=== PATIENT | male | born 1965 | race Caucasian/White ===

== ENCOUNTER 2018-12-07 11:28 | Day surgery (SDC) | payer SELFPAY ==
[2018-12-07] MEDS ORDERED: ceFAZolin(*) 1 GM VIAL 1 GM in NS(*) 0.9% 100 ML MINI-BAG 100 ML IV ONE (11:35)
[2018-12-07] MEDS ORDERED: DIPHTH/TETANUS/ACEL. PERTUSSIS IM ONLY ONE (11:35)
--- NOTE | 2018-12-07 11:37 | ER Report ---
History and Physical Time Seen By MD: 11:37 HPI/ROS CHIEF COMPLAINT: Amputation of left first finger HISTORY OF PRESENT ILLNESS: 53-year-old male patient presents to emergency room with complaint of amputation of left first finger. Patient states that he was using a skill saw and cut the end of his thumb off. Patient states he is not taking any medication for this. He did apply pressure, grabbed the distal end of the digit, placed it in ice and went to urgent care. On evaluation urgent care they saw the amputation and referred him directly to the emergency room. Patient states he started to throb, is having pain. He denies any other injury. He states he is unsure of his last tetanus shot. REVIEW OF SYSTEMS: Respiratory: No cough, no dyspnea. Cardiovascular: No chest pain, no palpitations. Gastrointestinal: No vomiting, no abdominal pain. Musculoskeletal: As noted above Allergies: Coded Allergies: No Known Drug Allergies (Unverified , 12/07/18) Home Meds Reported Medications Hydrocodone Bit/Acetaminophen (NORCO 5-325 TABLET) 1 Each Tablet, 1-2 EACH PO Q4-6H PRN for PAIN, #20 TAB 12/07/18 Cephalexin 500 Mg Tab (KEFLEX 500 MG TAB) 500 Mg Tablet, 500 MG PO TID for 10 Days, #30 TAB 12/07/18 Past Medical/Surgical History Patient has no pertinent medical or surgical history. Reviewed Nurses Notes: Yes Constitutional Vital Sign - Last 24 Hours 12/07/18 12/07/18 12/07/18 12/07/18 11:30 11:45 11:45 12:00 Temp 98.4 Pulse 52 48 Resp 14 B/P (MAP) 156/73 (100) 156/73 116/90 (99) Pulse Ox 96 97 96 O2 Delivery Room Air 12/07/18 12/07/18 12/07/18 12:15 12:30 12:45 Pulse 46 48 54 B/P (MAP) 120/82 (95) Pulse Ox 94 96 94 Physical Exam General Appearance: The patient is alert, has no immediate need for airway protection and no current signs of toxicity. Respiratory: Chest is non tender, lungs are clear to auscultation. Cardiac: regular rate and rhythm Gastrointestinal: Abdomen is soft and non tender, no masses, bowel sounds normal. Musculoskeletal: Neck: Neck is supple and non tender. Extremities have full range of motion and are non tender. Patient has amputation of distal and of the left first finger. Skin: No rashes or lesions. DIFFERENTIAL DIAGNOSIS: After history and physical exam differential diagnosis was considered for amputation, open fracture Medical Decision Making Data Points Result Diagram: 12/07/18 1140 12/07/18 1140 Laboratory Hematology Test 12/07/18 11:40 Red Blood Count 4.55 M/uL (4.00-5.60) Mean Corpuscular Volume 94.3 fL (80.0-96.0) Mean Corpuscular Hemoglobin 31.8 pg (26.0-33.0) Mean Corpuscular Hemoglobin Concent 33.7 g/dL (32.0-36.0) Red Cell Distribution Width 13.6 % (11.5-14.5) Mean Platelet Volume 9.0 fL (7.2-11.1) Neutrophils (%) (Auto) 51.6 % (39.4-72.5) Lymphocytes (%) (Auto) 33.0 % (17.6-49.6) Monocytes (%) (Auto) 10.8 % (4.1-12.4) Eosinophils (%) (Auto) 3.7 % (0.4-6.7) Basophils (%) (Auto) 0.9 % (0.3-1.4) Nucleated RBC Relative Count (auto) 0.0 /100WBC Neutrophils # (Auto) 2.5 K/uL (2.0-7.4) Lymphocytes # (Auto) 1.6 K/uL (1.3-3.6) Monocytes # (Auto) 0.5 K/uL (0.3-1.0) Eosinophils # (Auto) 0.2 K/uL (0.0-0.5) Basophils # (Auto) 0.0 K/uL (0.0-0.1) Nucleated RBC Absolute Count (auto) 0.00 K/uL Peripheral Blood Smear No Y/N Sodium Level 142 mmol/L (137-145) Potassium Level 3.7 mmol/L (3.5-5.0) Chloride Level 108 mmol/L (98-107) Carbon Dioxide Level 26 mmol/L (22-30) Blood Urea Nitrogen 9 mg/dl (9-21) Creatinine 1.00 mg/dl (0.66-1.25) Glomerular Filtration Rate Calc > 60.0 Random Glucose 82 mg/dl (75-110) Calcium Level 8.6 mg/dl (8.4-10.2) Total Bilirubin 0.6 mg/dl (0.2-1.3) Aspartate Amino Transf (AST/SGOT) 26 U/L (0-35) Alanine Aminotransferase (ALT/SGPT) 31 U/L (0-56) Alkaline Phosphatase 47 U/L (0-126) Total Protein 7.1 g/dl (6.3-8.2) Albumin 3.8 g/dl (3.5-5.0) Chemistry Test 12/07/18 11:40 White Blood Count 4.9 k/uL (4.5-11.0) Red Blood Count 4.55 M/uL (4.00-5.60) Hemoglobin 14.5 g/dL (14.0-18.0) Hematocrit 42.9 % (42.0-52.0) Mean Corpuscular Volume 94.3 fL (80.0-96.0) Mean Corpuscular Hemoglobin 31.8 pg (26.0-33.0) Mean Corpuscular Hemoglobin Concent 33.7 g/dL (32.0-36.0) Red Cell Distribution Width 13.6 % (11.5-14.5) Platelet Count 169 K/uL (150-450) Mean Platelet Volume 9.0 fL (7.2-11.1) Neutrophils (%) (Auto) 51.6 % (39.4-72.5) Lymphocytes (%) (Auto) 33.0 % (17.6-49.6) Monocytes (%) (Auto) 10.8 % (4.1-12.4) Eosinophils (%) (Auto) 3.7 % (0.4-6.7) Basophils (%) (Auto) 0.9 % (0.3-1.4) Nucleated RBC Relative Count (auto) 0.0 /100WBC Neutrophils # (Auto) 2.5 K/uL (2.0-7.4) Lymphocytes # (Auto) 1.6 K/uL (1.3-3.6) Monocytes # (Auto) 0.5 K/uL (0.3-1.0) Eosinophils # (Auto) 0.2 K/uL (0.0-0.5) Basophils # (Auto) 0.0 K/uL (0.0-0.1) Nucleated RBC Absolute Count (auto) 0.00 K/uL Peripheral Blood Smear No Y/N Glomerular Filtration Rate Calc > 60.0 Calcium Level 8.6 mg/dl (8.4-10.2) Total Bilirubin 0.6 mg/dl (0.2-1.3) Aspartate Amino Transf (AST/SGOT) 26 U/L (0-35) Alanine Aminotransferase (ALT/SGPT) 31 U/L (0-56) Alkaline Phosphatase 47 U/L (0-126) Total Protein 7.1 g/dl (6.3-8.2) Albumin 3.8 g/dl (3.5-5.0) EKG/Imaging Imaging Exam type: 3 views of the left thumb History: cut with saw Comparison: None. Findings: There is a comminuted fracture of the tuft of the left thumb a portion of which appears to be avulsed. Significant soft tissue irregularity is noted. The 1st metatarsal proximal phalanx of the thumb are intact. IMPRESSION: 1. Comminuted and displaced fracture of tuft of the left thumb with significant soft tissue irregularity Report Dictated By: Pj Stringer MD at 12/07/2018 12:59 PM Report E-Signed By: jP Stringer MD at 12/07/2018 1:00 PM ED Course/Re-evaluation ED Course Patient was admitted and examined, history and physical were obtained. Differential diagnoses were considered. On examination lungs are clear, heart is regular, abdomen is soft and nontender. Patient has obvious amputation of the distal aspect of the left thumb. X-rays done which showed open fracture of the distal tuft. Patient received a digital block, 1 g of Ancef. I discussed the case with Dr. Carroll, orthopedic surgeon,. He does look at the x-rays and came and evaluated the patient. He got to take patient to the OR to shorten the thumb and perform a flap surgery. He discussed this with the patient verbalized understanding and agreement. Patient is admitted from the emergency room to the OR. Decision to Disposition Date: Dec 07, 2018 Decision to Disposition Time: 13:17 Depart Departure Latest Vital Signs Vital Signs Date Time Temp Pulse Resp B/P (MAP) Pulse Ox O2 Delivery O2 Flow Rate FiO2 12/07/18 12:45 54 94 12/07/18 12:30 120/82 (95) 12/07/18 11:45 98.4 14 Room Air Impression: Primary Impression: Amputation of thumb, left Condition: Condition Unchanged Disposition: ADMIT FROM ER TO OR Problem Qualifiers Primary Impression: Amputation of thumb, left Encounter type: initial encounter Qualified Codes: S68.012A - Complete traumatic metacarpophalangeal amputation of left thumb, initial encounter GRICELDA CAPONE Dec 07, 2018 11:37
[2018-12-07 11:55] LABS: PLATELET COUNT, AUTOMATED 169 K/uL (150-450)
[2018-12-07] MEDS ORDERED: ONDANSETRON 4 MG/2 ML VIAL ONE (12:56)
[2018-12-07] MEDS ORDERED: DEXAMETHASONE SOD 4 MG/ML VIAL ONE (12:56)
[2018-12-07] MEDS ORDERED: LIDOCAINE MPF 1% 5 ML VIAL ONE (12:56)
[2018-12-07] MEDS ORDERED: PROPOFOL EMUL(*) 10MG/ML 20 ML 20 ML ONE (12:56)
[2018-12-07] MEDS ORDERED: fentaNYL CITR 100 MCG/2 ML AMP ONE (12:56)
[2018-12-07] MEDS ORDERED: KETAMINE HCL 200 MG/20 ML MDV ONE (12:58)
--- NOTE | 2018-12-07 13:04 | RADIOLOGY IMAGING REPORT ---
FACILITY: [facility] - [place], [place] PATIENT NAME: Kris Montenegro : 1965 MR: [id number] V: [id number] EXAM DATE: ORDERING PHYSICIAN: GRICELDA CAPONE TECHNOLOGIST: Location: [facility] [place] Patient: Kris Montenegro : 1965 Visit/Account:[id number] Date of Sevice: 12/07/2018 Exam type: 3 views of the left thumb History: cut with saw Comparison: None. Findings: There is a comminuted fracture of the tuft of the left thumb a portion of which appears to be avulsed . Significant soft tissue irregularity is noted. The 1st metatarsal proximal phalanx of the thumb a re intact. IMPRESSION: 1. Comminuted and displaced fracture of tuft of the left thumb with significant soft tissue irregula rity Report Dictated By: Pj Stringer MD at 12/07/2018 12:59 PM Report E-Signed By: Pj Stringer MD at 12/07/2018 1:00 PM WSN:JEN
[2018-12-07] MEDS ORDERED: LR(*) 1000 ML BAG 1,000 ML ONE (13:05)
[2018-12-07] MEDS ORDERED: KETOROLAC 30 MG/ML VIAL ONE (14:30)
[2018-12-07] MEDS ORDERED: CEPH500T7 PO (14:37)
[2018-12-07] MEDS ORDERED: HYDR-653 PO (14:38)
[2018-12-07 14:44] VITALS: BP 126/86
[2018-12-07 14:45] VITALS: BP 125/95
--- NOTE | 2018-12-07 14:50 | OPERATIVE REPORT 1 ---
EVENT DATE: December 07, 2018 SURGEON: Kris Carroll MD ANESTHESIOLOGIST: Deny Callaway MD ANESTHESIA: General with Regional Block PREOPERATIVE DIAGNOSIS Left thumb traumatic amputation. POSTOPERATIVE DIAGNOSIS Left thumb traumatic amputation. PROCEDURE PERFORMED Debridement of left thumb and closure. ESTIMATED BLOOD LOSS Minimal. FLUIDS Minimal. DESCRIPTION OF PROCEDURE The patient was brought to the operating room and placed in the supine position. Bump placed under left arm to align the left upper extremity. The tourniquet was then placed on the left upper extremity. It was prepped and draped in the normal sterile fashion using Prevail and Betadine. Sterile stockinettes and U- drape extremity drape placed along the left upper extremity. The stockinette was incised, rolled above the elbow and held with Coban. An Esmarch was then used to exsanguinate the left upper extremity to 250 mmHg. We washed out with normal saline first. It had already been washed out in the ER so it was actually pretty clean. We had to take the bone back about 3 mm to 4 mm and level it off. I had to debride the lateral aspect of the thumb wound. Once I had debrided the lateral aspect of the thumb wound, I was able to get a nice flap that came up. I had to debride some of the pulp as well. Once I removed all of the bone, I then washed it out again with normal saline. At this point, I then tacked down the middle of the flap in an acceptable alignment. I felt I had good closure and then I closed from [id number] with a 4-0 Nylon. Once the wound was completely closed, I then did adaptic and Coban was then placed over top. The patient went to recovery. No complications. The tourniquet was brought down. [facility]
--- NOTE | 2018-12-07 15:04 | NUR ---
1446: PT IS DRESSING 1505: DISCHARGE INSTRUCTIONS GIVEN BY Marquez ORTEZ 1507: IV DC'ED BY DEIRDRE LAGUNAS
[2018-12-07] MEDS ORDERED: APAP/HYDROCODONE 325/5 TAB ONE (15:14)
--- NOTE | 2018-12-07 15:20 | NUR ---
1520: PT SENT HOME WITH PO ANALGESICS 1523: PT AND Marquez ORTEZ WENT TO MEET PT FRIEND AT ED ENTRANCE
== END 2018-12-07 14:42 | disposition home or self-care (01) ==
LOC: ER 11:42 → OR 12:47
PROVIDERS: ATTEND Orthopaedic Surgery
DX: S68.012A Complete traumatic metacarpophalangeal amputation of left thumb, initial encounter (principal)
CPT/HCPCS: 11044; 73140; 85025; 90471; 90715; 96365; 99284; J0690; J1100; J1885; J2001; J2405; J2704; J3010; J3490; J7120; 82040; 82247; 82310; 82374; 82435; 82565; 82947; 84075; 84132; 84155; 84295; 84450; 84460; 84520

== ENCOUNTER 2018-12-08 09:03 | Emergency (ER) | payer SELFPAY ==
[~2018-12-08 09:03] MED LIST: CEPH500T7 PO; HYDR-653 PO
--- NOTE | 2018-12-08 09:24 | ER Report ---
History and Physical Time Seen By MD: 09:24 Hx. of Stated Complaint: blood coming through dressing on thumb HPI/ROS CHIEF COMPLAINT: Left thumb bleeding HISTORY OF PRESENT ILLNESS: Patient is a 53-year-old male here with complaints of left thumb bleeding postop after a partial thumb amputation. Patient reports that the bleeding started yesterday afternoon but has been persistent since time of onset. Patient is hemodynamically stable, well-appearing at time of evaluation. REVIEW OF SYSTEMS: Constitutional: No fever, no chills. Musculoskeletal: + post partial amputation of left thumb with oozing bleeding Skin: No rashes. Neurological: NV intact Allergies: Coded Allergies: No Known Drug Allergies (Unverified , 12/08/18) Home Meds Reported Medications Hydrocodone Bit/Acetaminophen (NORCO 5-325 TABLET) 1 Each Tablet, 1-2 EACH PO Q4-6H PRN for PAIN, #20 TAB 12/07/18 Cephalexin 500 Mg Tab (KEFLEX 500 MG TAB) 500 Mg Tablet, 500 MG PO TID for 10 Days, #30 TAB 12/07/18 Hx Substance Use Disorder: No Hx Alcohol Use: No Constitutional Vital Sign - Last 24 Hours 12/08/18 12/08/18 12/08/18 09:07 09:30 10:00 Temp 98.2 Pulse 46 52 Resp 20 Pulse Ox 96 94 O2 Delivery Room Air Physical Exam General Appearance: The patient is alert, has no immediate need for airway protection and no signs of toxicity. NAD Neurological: NV intact Skin: + partial amputation of left distal thumb with ozzing blood Musculoskeletal: Extremities are nontender, nonswollen and have full range of motion. DIFFERENTIAL DIAGNOSIS: After history and physical exam differential diagnosis was considered for postoperative bleeding, venous disruption Medical Decision Making ED Course/Re-evaluation ED Course Patient is a 53-year-old male here status post partial amputation yesterday with surgical repair with Dr. Carroll. Patient reports that he started bleeding overnight and blood through his dressing prompting evaluation. Initially, a gauze soaked with tranexamic acid was applied to the site with compression dressing however venous bleeding persisted. Surgicel was then applied and with a compression dressing with hemostasis. Patient was well-appearing at time of discharge. Return precautions were provided. Decision to Disposition Date: Dec 08, 2018 Decision to Disposition Time: 11:08 Depart Departure Latest Vital Signs Vital Signs Date Time Temp Pulse Resp B/P (MAP) Pulse Ox O2 Delivery O2 Flow Rate FiO2 12/08/18 10:00 52 94 12/08/18 09:07 98.2 20 Room Air Impression: Primary Impression: Postoperative bleeding from incision Condition: Improved Disposition: HOME OR SELF-CARE Patient Instructions: Postoperative Bleeding (ED) Additional Instructions: Please keep your dressing in place. Please keep the dressing clean and dry. Please return promptly if you develop recurrent bleeding, please follow-up with your surgeon as scheduled. JOANIE CANO DO Dec 08, 2018 09:24
[2018-12-08] MEDS ORDERED: LABETALOL HCL 100 MG/20ML VIAL IVP ONE (09:35)
[2018-12-08] MEDS ORDERED: TRANEXAMIC AC 1000 MG/10ML SDV ONE (09:45)
== END 2018-12-08 11:09 | disposition home or self-care (01) ==
LOC: ER 09:29
DX: L76.22 Postprocedural hemorrhage of skin and subcutaneous tissue following other procedure (principal)
CPT/HCPCS: 99283